=== PATIENT | female | born 1950 | race Caucasian/White ===

== ENCOUNTER 2017-04-25 17:01 | Inpatient (IN) | payer MEDICARE, BC ==
[~2017-04-25] VITALS: Ht 160 cm; Wt 65.0 kg
[2017-04-25] MEDS ORDERED: BENICAR 20MG TA20 MG PO (18:13)
[2017-04-25 18:15] VITALS: BP 182/95; PULSE 82; TEMP 98.8
[2017-04-25 22:05] VITALS: BP 166/89; PULSE 76; TEMP 98.2
[2017-04-26] VITALS (13 sets, daily range): BP systolic 103–170; BP diastolic 51–84; PULSE 74–112; TEMP 97.4–98.3
[2017-04-26 06:47] LABS: CALCIUM 9.3 mg/dL (8.4-10.2); CREATININE, serum 0.64 mg/dL (0.52-1.25); POTASSIUM 3.1 mmol/L (3.4-5.0)
[2017-04-26] MEDS ORDERED: HCTZ12.5TAB PO (10:03)
[2017-04-27] VITALS (7 sets, daily range): BP systolic 94–128; BP diastolic 51–61; PULSE 63–116; TEMP 92.3–100.8
[2017-04-27 07:13] LABS: HEMATOCRIT 31.4 % (37.0-47.0); HEMOGLOBIN 10.7 g/dl (12.5-16.0)
[2017-04-27 07:18] LABS: CALCIUM 8.5 mg/dL (8.4-10.2); CREATININE, serum 0.81 mg/dL (0.52-1.25); POTASSIUM 4.4 mmol/L (3.4-5.0)
[2017-04-27 17:40] LABS: MEAN CELL VOLUME 95 fl (80.0-100.0); MEAN CORPUSCULAR HGB CONC 34 g/dl (33.0-37.0); MEAN PLATELET VOLUME 10.1 fl (7.4-10.4); PLATELET COUNT 273 K/mm3 (130-400); RED BLOOD COUNT 3.19 M/mm3 (4.10-5.30); WHITE BLOOD COUNT 6.5 K/mm3 (4.8-10.8)
[2017-04-27 17:53] LABS: ADD PATHOLOGY DIFF REVIEW NO; HEMATOCRIT 30.3 % (37.0-47.0); HEMOGLOBIN 10.3 g/dl (12.5-16.0); MEAN CORPUSCULAR HEMOGLOBIN 32 pg (27.0-31.0)
[2017-04-27 17:55] LABS: CALCIUM 8.4 mg/dL (8.4-10.2); CREATININE, serum 0.83 mg/dL (0.52-1.25); POTASSIUM 4.2 mmol/L (3.4-5.0)
[2017-04-27 18:59] LABS: BAND 67 % (0-10); METAMYELOCYTE 1 % (0-0); NEUTROPHILS 24 % (42.0-75.2); TOTAL CELLS COUNTED 100
[2017-04-27 19:00] LABS: PLATELET ESTIMATE NORMAL (NORMAL); TOXIC GRANULATION PRESENT
[2017-04-28] VITALS (7 sets, daily range): BP systolic 78–138; BP diastolic 51–85; PULSE 49–126; TEMP 98.6–101
[2017-04-28 07:19] LABS: CALCIUM 8.3 mg/dL (8.4-10.2); CREATININE, serum 0.98 mg/dL (0.52-1.25); POTASSIUM 4.1 mmol/L (3.4-5.0)
[2017-04-28 07:26] LABS: MEAN CELL VOLUME 95 fl (80.0-100.0); MEAN CORPUSCULAR HGB CONC 34 g/dl (33.0-37.0); MEAN PLATELET VOLUME 10.7 fl (7.4-10.4); PLATELET COUNT 261 K/mm3 (130-400); REDCELL DISTRIBUTION WIDTH-CV 13.3 % (11.5-14.5); WHITE BLOOD COUNT 6.8 K/mm3 (4.8-10.8)
[2017-04-28 07:32] LABS: ADD PATHOLOGY DIFF REVIEW NO; HEMATOCRIT 27.4 % (37.0-47.0); HEMOGLOBIN 9.2 g/dl (12.5-16.0); MEAN CORPUSCULAR HEMOGLOBIN 32 pg (27.0-31.0)
[2017-04-28 08:17] LABS: BAND 3 % (0-10); EOSINOPHIL 6 % (0-4); NEUTROPHILS 81 % (42.0-75.2); PLATELET ESTIMATE NORMAL (NORMAL); TOTAL CELLS COUNTED 100
[2017-04-29] VITALS (7 sets, daily range): BP systolic 125–144; BP diastolic 68–85; PULSE 68–119; TEMP 98.1–101.6
[2017-04-29 06:35] LABS: MEAN CELL VOLUME 94 fl (80.0-100.0); MEAN CORPUSCULAR HGB CONC 34 g/dl (33.0-37.0); MEAN PLATELET VOLUME 10.2 fl (7.4-10.4); PLATELET COUNT 265 K/mm3 (130-400); RED BLOOD COUNT 2.76 M/mm3 (4.10-5.30); REDCELL DISTRIBUTION WIDTH-CV 13.4 % (11.5-14.5); WHITE BLOOD COUNT 7.1 K/mm3 (4.8-10.8)
[2017-04-29 06:36] LABS: ADD PATHOLOGY DIFF REVIEW NO; HEMOGLOBIN 8.9 g/dl (12.5-16.0); MEAN CORPUSCULAR HEMOGLOBIN 32 pg (27.0-31.0)
[2017-04-29 06:42] LABS: CALCIUM 8.9 mg/dL (8.4-10.2); CREATININE, serum 0.73 mg/dL (0.52-1.25); POTASSIUM 3.5 mmol/L (3.4-5.0)
[2017-04-29 08:17] LABS: BAND 65 % (0-10); EOSINOPHIL 1 % (0-4); NEUTROPHILS 29 % (42.0-75.2); PLATELET ESTIMATE NORMAL (NORMAL); TOTAL CELLS COUNTED 100
[2017-04-29] MEDS ORDERED: NORCO 325 MG-7.1 TAB PO (19:46)
[2017-04-30 01:04] VITALS: BP 120/78; PULSE 95; TEMP 98.4
[2017-04-30 05:27] VITALS: BP 138/77; PULSE 100; TEMP 98.8
[2017-04-30 07:59] LABS: MEAN CELL VOLUME 92 fl (80.0-100.0); MEAN CORPUSCULAR HGB CONC 35 g/dl (33.0-37.0); MEAN PLATELET VOLUME 10.4 fl (7.4-10.4); PLATELET COUNT 287 K/mm3 (130-400); RED BLOOD COUNT 2.82 M/mm3 (4.10-5.30); REDCELL DISTRIBUTION WIDTH-CV 13.2 % (11.5-14.5); WHITE BLOOD COUNT 7.3 K/mm3 (4.8-10.8)
[2017-04-30 08:01] LABS: HEMATOCRIT 25.8 % (37.0-47.0); MEAN CORPUSCULAR HEMOGLOBIN 32 pg (27.0-31.0)
[2017-04-30 08:10] LABS: CALCIUM 8.7 mg/dL (8.4-10.2); CREATININE, serum 0.62 mg/dL (0.52-1.25); POTASSIUM 3.2 mmol/L (3.4-5.0)
[2017-04-30 08:26] LABS: BAND 53 % (0-10); METAMYELOCYTE 2 % (0-0); NEUTROPHILS 17 % (42.0-75.2); TOTAL CELLS COUNTED 100
[2017-04-30 08:27] LABS: PLATELET ESTIMATE NORMAL (NORMAL)
[2017-04-30 08:29] LABS: TARGET CELLS 1+
[2017-04-30 08:31] LABS: ADD PATHOLOGY DIFF REVIEW YES; POLYCHROMASIA 1+
[2017-04-30 10:20] VITALS: BP 112/78; PULSE 85; TEMP 97.2
[2017-04-30 14:00] VITALS: BP 122/69; PULSE 87; TEMP 97.9
[2017-04-30 18:51] VITALS: BP 123/70; PULSE 94; TEMP 99.3
[2017-04-30 21:32] VITALS: BP 125/77; PULSE 89; TEMP 98.4
[2017-05-01 05:10] VITALS: BP 127/71; PULSE 79; TEMP 98
[2017-05-01 09:55] VITALS: BP 110/59; PULSE 90; TEMP 98
[2017-05-02 09:07] LABS: PATHOLOGY DIFF REVIEW OK
== END 2017-05-01 15:30 | disposition home or self-care (01) | DRG 330 ==
LOC: MEDICAL 17:01 → SURG 17:49
PROVIDERS: Surgery
PROC: 0DBN0ZZ Excision of Sigmoid Colon, Open Approach (ICD-10-PCS; principal; 2017-04-26 12:00)
PROC: 0D1B0Z4 Bypass Ileum to Cutaneous, Open Approach (ICD-10-PCS; 2017-04-26 12:00)
DX: K56.69 Other intestinal obstruction (principal); E87.1 Hypo-osmolality and hyponatremia; I10 Essential (primary) hypertension; E87.6 Hypokalemia
CPT/HCPCS: A4315; A9284; J1100; J1650; J2250; J2270; J2405; J2704; J2710; J2765; J3010; J3480; J7030; J7120

== ENCOUNTER → 2017-05-06 | Outpatient (CLI) | payer MEDICARE, BC ==
[~2017-05-06] MED LIST: BENICAR 20MG TA20 MG PO; HCTZ12.5TAB PO; NORCO 325 MG-7.1 TAB PO
== END ==
LOC: ZCOL.LAB 16:44
DX: T81.4XXA Infection following a procedure, initial encounter (principal)

== ENCOUNTER 2017-06-15 12:34 | Inpatient (IN) | payer MEDICARE, BC ==
[~2017-06-15] VITALS: Ht 160 cm; Wt 58.9 kg
[2017-06-28] VITALS (11 sets, daily range): BP systolic 122–167; BP diastolic 47–88; PULSE 52–82; TEMP 97.7–98
[2017-06-29] VITALS (7 sets, daily range): BP systolic 123–158; BP diastolic 67–89; PULSE 63–77; TEMP 97.5–98.7
[2017-06-30 05:55] VITALS: BP 159/99; PULSE 80; TEMP 98.2
[2017-06-30 09:47] VITALS: BP 149/77; PULSE 86
[2017-06-30 14:58] VITALS: BP 168/70; PULSE 71
[2017-06-30 17:55] VITALS: BP 139/61; PULSE 85; TEMP 97.9
== END 2017-06-30 19:21 | disposition home or self-care (01) | DRG 330 ==
LOC: INPTSU 06-28 06:57 → SURG 06-28 10:00 → JCC 06-28 11:56
PROVIDERS: Surgery
PROC: 0DBB0ZZ Excision of Ileum, Open Approach (ICD-10-PCS; principal; 2017-06-28 10:00)
DX: Z43.2 Encounter for attention to ileostomy (principal); E44.0 Moderate protein-calorie malnutrition; I10 Essential (primary) hypertension; Z68.23 Body mass index [BMI] 23.0-23.9, adult
CPT/HCPCS: A4315; C1781; J1100; J1170; J1644; J2250; J2405; J2704; J3010; J7120